=== PATIENT | male | born 1935 | race Caucasian/White ===

== ENCOUNTER 2016-02-26 15:54 | Emergency (ER) | payer OTHER ==
[~2016-02-26] VITALS: Ht 170.1 cm; Wt 95.3 kg
[~2016-02-26 15:54] MED LIST: BRIMONIDINE TART5 ML OPH; CREON DR 36,001 EACH PO; FLORICAL PO; LATANOPROST2.5 ML OP; OSTEO BI-FLEX1 EAC1 PO; PANTOPRAZOLE SO40 MG PO; TOPROL XL50 M1 PO; VITAMIN D-32000 UNI1 PO; [UNRECOGNIZED DRUG - OTHER] PO
[2016-02-26 16:30] LABS: BASO % 0.5 % (0.0-1.0); EOS # 0.1 10*3/uL (0.0-0.4); EOS % 1.8 % (1.0-4.0); HEMATOCRIT 29.1 % (42.0-52.0); HEMOGLOBIN 9.7 g/dl (14.0-18.0); LYMPH # 0.7 10*3/uL (1.3-4.4); LYMPH % 17.2 % (27.0-41.0); MEAN CELL VOLUME 104.3 fl (80.0-94.0); MEAN CORPUSCULAR HGB 34.8 pg (27.0-31.0); MEAN CORPUSCULAR HGB CONC 33.3 g/dl (33.0-37.0); MEAN PLATELET VOLUME 11.5 fl (9.6-12.3); MONO # 0.3 10*3/uL (0.1-1.0); MONO % 7.8 % (3.0-9.0); NEUT # 2.9 10*3/uL (2.3-7.9); NEUT % 72.7 % (47.0-73.0); PLATELET COUNT AUTOMATED 93 10*3/uL (130-400); RED BLOOD COUNT 2.79 10*6/uL (4.50-5.90); RED CELL DISTRI WIDTH 14.7 % (0-14.5)
[2016-02-26] MEDS ORDERED: AMLODIPINE BESYL5 MG PO (16:36)
[2016-02-26 16:42] LABS: INTERNATIONAL NORM RATIO 1.1 (2.0-3.5); PROTHROMBIN TIME 11.7 SECONDS (9.0-12.4)
[2016-02-26 16:53] LABS: ALBUMIN 3.4 gm/dl (3.1-4.5); BILIRUBIN, TOTAL 0.8 mg/dl (0.2-1.0); POTASSIUM 4.4 mmol/L (3.5-5.1); TOTAL PROTEIN 6.1 gm/dL (6.4-8.2)
== END 2016-02-26 17:25 | disposition short-term general hospital (02) ==
LOC: ED 15:54
PROVIDERS: Emergency Medicine
DX: R41.0 Disorientation, unspecified (principal); Z88.8 Allergy status to other drugs, medicaments and biological substances; I67.82 Cerebral ischemia; C25.9 Malignant neoplasm of pancreas, unspecified; C78.00 Secondary malignant neoplasm of unspecified lung

== ENCOUNTER 2016-06-30 08:46 | Inpatient (IN) | payer OTHER ==
[~2016-06-30] VITALS: Ht 182.9 cm; Wt 68.0 kg
[2016-06-30] VITALS (7 sets, daily range): BP systolic 90–128; BP diastolic 23–79
--- NOTE | ~2016-06-30 | CON ---
[place], [place] REPORT OF CON[facility]ULTATION [id number] UNIT #: [id number] ROOM: [facility] DOCTOR: LEE HARRISON,MAY BIRTHDATE: [birth year] DOS: 07/02/2016 HISTORY OF PRESENT ILLNESS: The patient is a pleasant 81-year-old male who was admitted from an area intermediate. He has had a complicated course. He has pancreatic cancer with liver metastasis. He has been on and off chemo since 2013 when he was diagnosed. He was found lying on the floor at the intermediate. He has Gram-negative rods septicemia. Urine culture that was obtained in the ER, they cath him and had 20 mL of concentrated urine that grew ESBL E. coli. He was started on Merrem this morning cefepime was stopped. He has also been receiving vancomycin and Levaquin. ID is consulted for Gram-negative fabio septicemia. The patient does have a MediPort in place. One of set of the blood cultures then have come up positive were drawn from the MediPort. He had repeat blood cultures drawn earlier today, one peripheral and one from the MediPort. He has a peritoneal catheter to drain his ascites. The peritoneal fluid was sent today for workup. He had 900 mL drained. He has 291 WBCs with 69% neutrophils, which would be consistent with a bacterial peritonitis, although he did not really does have pain of the abdomen. He did have some mild pain with the drainage procedure today. I discussed with the RN who drained his peritoneal catheter today, and she states that it was not cloudy but was dark shane. Per his , the fluid has been worked up and did not show malignant cells previously. He is currently off of chemotherapy due to his lung metastasis and multiple comorbidities. He had also been diagnosed with Jocelyn's encephalopathy recently. PAST MEDICAL HISTORY: As above as well as chronic kidney disease, depression, generalized anxiety disorder, GERD, glaucoma, hyperlipidemia, hypertension, macrocytic anemia, again pancreatic cancer metastasis to lung, prostate cancer, vitamin D deficiency, malnutrition, Whipple procedure, appendectomy, and bilateral cataract surgery, prostatectomy, and repair of ear bone. SOCIAL HISTORY: , nonsmoker, nondrinker currently in a intermediate. Reformed smoker. Quit smoking at the age of 39. No illicit drug use. FAMILY MEDICAL HISTORY: Father in world war II. Mother at the age of 68 from CVA. ALLERGIES: Include LASIX, TAPE, FLURANDRENOLIDE, TIMOLOL. CURRENT MEDICATIONS: Include IV vancomycin, Merrem, levofloxacin, vitamin D, thiamine, Xalatan eye drops, folic acid, Feosol, Colace, Imuran, aspirin, Creon, Protonix, Remeron, Alphagan eye drops, and Senokot. LABORATORY DATA: WBC is 10.1, platelets 81, BUN 72, creatinine 2.27. LFTs within normal limits. Albumin 1.2. On 06/30/2016 admitting blood cultures with Gram-negative rods. Urine culture with greater than 100,000 colonies of ESBL E. coli which is sensitive to carbapenem. Repeat blood cultures from 07/02/2016 pending. Peritoneal fluid culture obtained today is pending. REVIEW OF SYSTEMS: Given per nursing and the patient's with patient assisting although he is a very poor historian. He is alert, responsive. [place], [place] REPORT OF CONSULTATION NAME: RAMON PICHARDO UNIT #: [id number] ROOM: [facility] DOCTOR: LEE HARRISON,MAY BIRTHDATE: [birth year] Denies any nausea or vomiting. No diarrhea, no rash or itch. No cough or shortness of breath. He was hypotensive on admission that has resolved. He has been afebrile during his entire hospitalization. Denies abdominal pain except that he ended up having his peritoneum drained earlier today. No rash or itch. He has resolving sacral decubitus. He has poor appetite with peripheral edema. He denies any dysuria or hematuria. Further review of systems is unremarkable. PHYSICAL EXAMINATION: VITAL SIGNS: Show temperature 97.8, pulse 102, respirations 17, BP 128/82. GENERAL: An 81-year-old male in no acute distress, nontoxic in appearance. THROAT: Normocephalic, no thrush. NECK: Supple. LUNGS: Clear to auscultation bilaterally, respirations even and unlabored. HEART: Regular rhythm. No murmur appreciated. ABDOMEN: Soft. Mild distention with ascites. Nontender. Peritoneal catheter dressed. EXTREMITIES: +1 to 2 edema of all 4 extremities. No cellulitis. He has ecchymosis of left distal foot. SKIN: Warm, dry, pale. Sacrum with area of darkened skin where it appears he has almost entirely heel decubitus. Few small open superficial areas. No odor or cellulitis. On right chest he has a MediPort, which is accessed. RADIOLOGY: Chest x-ray with no active disease. Renal ultrasound has no acute changes. ASSESSMENT: Gram-negative fabio septicemia, likely infected peritoneal catheter which may have ceded the MediPort at this point given that one of the sets growing positive from the MediPort. Repeat cultures were obtained earlier today from the MediPort and peripherally. If these continued to grow bacteria, he is going to have the MediPort removed as well as the peritoneal port removed. We will stop the vancomycin and Levaquin. Follow up on his cultures. Continue the Merrem. Case discussed with Dr. Ann-Marie Carlin. YUNIEL HOWARD CNP ANN-MARIE CARLIN MD CM:CONSTR:REPORT OF CONSULTATION 1743 07/03/16 0725 interface
--- NOTE | ~2016-06-30 | PR ---
[place], [place] PROGRESS NOTE NAME: RAMON PICHARDO UNIT #: [id number] ROOM: 524 DOCTOR: RAEGAN PAREDES,ANN-MARIE Davis BIRTHDATE: [birth year] DOS: 07/03/2016 ADDENDUM I agree with the above plans as described. We will make adjustments accordingly as results evolve. ANN-MARIE CARLIN MD CM:PNTRANS [id number] ANN-MARIE CARLIN MD 07/05/16 1534 interface
--- NOTE | ~2016-06-30 | CON ---
[place], [place] REPORT OF CONSULTATION NAME: RAMON PICHARDO [facility] #: [id number] UNIT #: [id number] ROOM: [facility] DOCTOR: JESSIE LANDON MD BIRTHDATE: [birth year] DOS: 07/03/2016 SUBJECTIVE: The patient was seen and examined. He is awake and alert. His is at bedside. He remains critically ill. He was asking me when he can go home. He denied shortness of breath to me. His appetite has been poor, but has picked up a little bit. PHYSICAL EXAMINATION: VITAL SIGNS: Showed temperature of 97.4, pulse 101, respiratory rate 18, blood pressure 138/94. HEENT: Shows no JVD. Mucous membranes were dry. LUNGS: Diminished breath sounds. No wheeze. HEART: Normal S1, S2. No rub, thrill or gallop. ABDOMEN: Soft, nontender. There is no organomegaly. EXTREMITIES: Had 1+ edema. SKIN: Showed no rash. LABORATORY DATA: Hemoglobin 8.2, white count of 9.4, platelets of 59. Sodium 145, potassium 3.7, CO2 of 20, BUN 68, creatinine 2.19, calcium 7.0, phosphorus 3.6, magnesium 1.5, albumin 1.2. IMPRESSION: 1. Acute on chronic kidney disease. The patient's renal function has improved and is now stable. We would stop IV fluids. 2. Anemia. Stable H and H. Transfuse as needed. 3. Thrombocytopenia. Continue to follow platelet trends. 4. Sepsis. The patient is on antibiotics. 5. Metastatic pancreatic cancer. Per report, he has a poor prognosis. Continue pain management. 6. Hypoalbuminemia with malnutrition. Encourage oral intake. I do not see any need for IV albumin at this time. 7. The patient is acceptable for discharge from a renal standpoint. He can follow up with his primary associate consulting engineer. He did indicate to me that he wants to go home tomorrow, but I had stated that he would need clearance from all his doctors and I do not know the details. JESSIE LANDON MD CM:CONSTR:REPORT OF CONSULTATION 1736 07/04/16 0438 interface
--- NOTE | ~2016-06-30 | PR ---
[place], [place] PROGRESS NOTE NAME[id number] UNIT #: [id number] ROOM: [facility] DOCTOR: JESSIE LANDON MD BIRTHDATE: [birth year] DOS: 07/04/2016 SUBJECTIVE: The patient was seen and examined. He is awake and alert. Denies shortness of breath, nausea, vomiting or diarrhea. He wants to go home today. He states he feels fine. PHYSICAL EXAMINATION: VITAL SIGNS: Showed temperature 97.8, pulse 86, respirations 18, blood pressure 127/85. HEENT: Shows no JVD. LUNGS: Diminished breath sounds. No wheeze. HEART: Normal S1, S2. No rub, thrill or gallop. ABDOMEN: Soft, nontender. There is no organomegaly. EXTREMITIES: Showed 1+ edema. SKIN: Showed no rash. LABORATORY DATA: Hemoglobin 8.7, white count of 9.9, platelet count 61. Sodium 147, potassium 3.8, CO2 of 21, BUN 61, creatinine of 1.9, glucose 109, calcium 7.2, phosphorus 3.2, magnesium of 1.4 and albumin of 1.2. ASSESSMENT AND PLAN: 1. Acute on chronic kidney disease with a baseline creatinine in the middle ones range. The patient's creatinine is improving. Continue ongoing supportive care. 2. Mild hypernatremia. Encourage oral fluids. 3. Hypomagnesemia. The patient's magnesium was replaced. 4. Sepsis. Antibiotics per the Infectious Disease Service. 5. Metastatic pancreatic cancer. Continue ongoing supportive care. The patient is acceptable for discharge from renal standpoint. JESSIE LANDON MD CM:PNTRANS 1551 [id number] JESSIE LANDON MD 07/05/165 interface
--- NOTE | ~2016-06-30 | CON ---
[place], [place] REPORT OF CONSULTATION NAME: RAMON PICHARDO UNIT #: [id number] ROOM: 524 DOCTOR: RAEGAN PAREDES,ANN-MARIE Davis BIRTHDATE: [birth year] DOS: 07/02/2016 ADDENDUM I agree with the above plans as described after reviewing the chart, discussing case. We will follow the patient up clinically and adjust accordingly. ANN-MARIE CARLIN MD CM:CONSTR:REPORT OF CONSULTATION 1209 07/05/16 1519 interface
--- NOTE | ~2016-06-30 | PR ---
[place], [place] PROGRESS NOTE NAME: RAMON PICHARDO [facility] #: [id number] UNIT #: [id number] ROOM: [facility] DOCTOR: NANCY GOFF MD BIRTHDATE: [birth year] DOS: 07/02/2016 CARDIOLOGY PROGRESS NOTE SUBJECTIVE: The patient was seen at his bedside in the intensive care unit today with his in attendance. He is an 81-year-old man who has no previous history of heart disease, but does have pancreatic cancer with lung metastasis. He was hospitalized on this occasion because of weakness and was found to be septic. His urine is growing out ESBL Escherichia coli and a blood culture is also positive for gram-negative rods. He is therefore in contact isolation. He was noted to have no elevation in troponin with a peak troponin of 0.690 and a followup troponin of 0.360. Because of this, we were asked to see him. His echocardiogram was a technically difficult and somewhat limited study, but showed normal overall left ventricular function. Specific regional wall motion analysis was difficult; however, the anterior septum may be hypokinetic, but the other gant do thicken normally. Today, the patient is feeling better. He would still like to go home as soon as possible. PHYSICAL EXAMINATION: VITAL SIGNS: His pulse is 100 and regular, blood pressure is 128/82. He is afebrile. He weighs 68.0 kilograms with a body mass index of 20.3. NECK: Supple. He has no jugular distention. Carotids are full. LUNGS: Respirations have bibasilar crackles. HEART: Has a regular rhythm with an S4 gallop, but no significant murmurs. ABDOMEN: Soft. EXTREMITIES: Wrapped with mild edema bilaterally. IMPRESSION: 1. Elevated troponin. This is most likely due to demand ischemia from his underlying infection. 2. Healthcare-associated pneumonia. 3. Severe sepsis. 4. Urinary tract infection with extended-spectrum beta-lactamase Escherichia coli. 5. Positive blood cultures for gram-negative rods. 6. Metastatic pancreatic cancer. PLAN: The patient's LV function is generally normal. Unfortunately, his other medical problems do limit his prognosis greatly. For now, I would continue supportive care. We have no plans for advanced cardiac diagnostics or therapeutics. We will be available to see him as needed and I thank the hospitalist physicians for asking our advice regarding his care. [place], [place] PROGRESS NOTE NAME: RAMON PICHARDO UNIT #: [id number] ROOM: [facility] DOCTOR: SHELL PAREDES,NANCY BIRTHDATE: [birth year] NANCY GOFF MD CM:PNTRANS [id number] NANCY GOFF MD 07/03/16 0551 interface
--- NOTE | ~2016-06-30 | PR ---
[place], [place] PROGRESS NOTE NAME: RAMON PICHARDO [facility] #: [id number] UNIT #: [id number] ROOM: [facility] DOCTOR: LEE HARRISON,MAY BIRTHDATE: [birth year] DOS: HISTORY: He is being followed for gram-negative fabio septicemia, blood cultures have now grown Proteus. Blood cultures drawn include from the MediPort that he has in place. He had a urine culture with an ESBL E. coli. He is currently on Merrem, which he is tolerating without issue. He has metastatic pancreatic cancer. He is off all chemo as per his oncologist. He also has a peritoneal drain in place that is used to drain his ascites. He did have 291 wbc's with 69% neutrophils from the peritoneal fluid, though he has had minimal abdominal discomfort. The fluid culture from the peritoneal fluid is pending, that was only obtained yesterday morning after antibiotics had already been initiated. He is alert, fairly oriented. Denies nausea or vomiting. He has frequent soft stools. No pain. No cough or shortness of breath. No rash or itch. He has been afebrile. VITAL SIGNS: Show a temperature 98.0, pulse 100, respirations 16, BP 116/82. CURRENT MEDICATIONS: Include Merrem, vitamin D, thiamine, folic acid, Feosol, Colace, Imuran, aspirin, Creon, Protonix, Remeron, Alphagan. LABORATORY DATA: WBCs 9.4, platelets 59, BUN 68, creatinine 2.19. LFTs within normal limits. PHYSICAL EXAMINATION: GENERAL: An 81-year-old male, in no acute distress. HEAD, EYES, EARS, NOSE AND THROAT: Normocephalic, no thrush. LUNGS: Clear to auscultation bilaterally. Respirations even and unlabored. HEART: Regular rhythm. No murmur appreciated. ABDOMEN: Soft, less distended, positive bowel sounds, nontender. Peritoneal site, no active discharge or erythema. Right chest MediPort is accessed. EXTREMITIES: A +1 to 2 edema of all 4 extremities. No cellulitis. H does have a sacral decubitus, which I examined yesterday, which is noninfected. SKIN: Otherwise, warm, dry, and free of rashes. ASSESSMENT: Proteus septicemia with likely source being possible peritonitis with the elevated wbc's from peritoneal fluid and a peritoneal drain in place. If the peritoneal fluid cultures are positive, then he needs to have the drain removed. We will continue the Merrem. Repeat blood cultures were done yesterday from the MediPort and if those are positive, he will certainly need the MediPort removed as well. I did discuss this with the patient and his . Case was discussed with Dr. Ann-Marie Carlin. YUNIEL HOWARD CNP [place], [place] PROGRESS NOTE NAME: RAMON PICHARDO [place] UNIT #: [id number] ROOM: [facility] DOCTOR: LEE HARRISON BIRTHDATE: [birth year] ANN-MARIE CARLIN MD CM:PNVIRAJ [id number] [id number] MAY LEE HARRISON 07/03/16 1700 interface
[~2016-06-30 08:46] MED LIST changes: +AMLODIPINE BESYL5 MG PO
[2016-06-30 09:15] LABS: HEMATOCRIT 27.9 % (42.0-52.0); HEMOGLOBIN 9.1 g/dl (14.0-18.0); MEAN CELL VOLUME 102.6 fl (80.0-94.0); MEAN CORPUSCULAR HGB 33.5 pg (27.0-31.0); MEAN CORPUSCULAR HGB CONC 32.6 g/dl (33.0-37.0); MEAN PLATELET VOLUME 11.4 fl (9.6-12.3); PLATELET COUNT AUTOMATED 102 10*3/uL (130-400); RED BLOOD COUNT 2.72 10*6/uL (4.50-5.90); WHITE BLOOD COUNT 25.1 10*3/uL (4.8-10.8)
[2016-06-30 09:24] LABS: INTERNATIONAL NORM RATIO 1.3 (2.0-3.5); PROTHROMBIN TIME 13.8 SECONDS (9.0-12.4)
[2016-06-30] MEDS ORDERED: AZATHIOPRINE50 MG PO (09:30)
[2016-06-30] MEDS ORDERED: ASPIRIN81 M1 PO (09:30)
[2016-06-30] MEDS ORDERED: COLACE100 MG PO (09:30)
[2016-06-30 09:31] LABS: ALBUMIN 1.2 gm/dl (3.1-4.5); BILIRUBIN, TOTAL 0.5 mg/dl (0.2-1.0); CKMB 3.4 ng/ml (0.5-3.6); LYMPHOCYTE # 0.5 10*3/uL (1.3-4.4); MAGNESIUM 1.7 mg/dL (1.5-2.1); MONOCYTE # 0.5 10*3/uL (0.1-1.0); NEUTROPHIL # 24.1 10*3/uL (2.3-7.9); NEUTROPHILS 96 % (47-73); POTASSIUM 3.8 mmol/L (3.5-5.1); TOTAL CELLS COUNTED 100 #CELLS
[2016-06-30] MEDS ORDERED: FLORICAL PO (09:31)
[2016-06-30 09:32] LABS: PLATELET SUFFICIENCY LOW (NORMAL); POLYCHROMASIA SLIGHT; TOXIC GRANULATION SLIGHT
[2016-06-30] MEDS ORDERED: LASIX20 MG PO (09:33)
[2016-06-30 09:34] LABS: TROPONIN I 0.45 ng/ml (<0.045)
[2016-06-30] MEDS ORDERED: MELATONIN3 MG PO (09:35)
[2016-06-30] MEDS ORDERED: GLUCOSAMINE & C1 TAB PO (09:35)
[2016-06-30] MEDS ORDERED: PREDNISONE10 MG PO (09:36)
[2016-06-30] MEDS ORDERED: REMERON15 M2 PO (09:36)
[2016-06-30] MEDS ORDERED: NATURE'S BLEND100 M2 PO (09:37)
[2016-06-30] MEDS ORDERED: TRAZODONE50 MG PO (09:37)
[2016-06-30] MEDS ORDERED: SENNA LAX8.6 M1 PO (09:37)
[2016-06-30] MEDS ORDERED: VITAMIN D5000 I3 PO (09:38)
[2016-06-30] MEDS ORDERED: XALATAN 0.005%2.5 ML OU (09:39)
[2016-06-30] MEDS ORDERED: ALPHAGAN-P 0.2%5 ML OPH ×2 (09:39→09:48)
[2016-06-30] MEDS ORDERED: FERROUS SULFAT325 MG PO (09:40)
[2016-06-30] MEDS ORDERED: NEPHROCAPS1 SGL PO (09:40)
[2016-06-30] MEDS ORDERED: [UNRECOGNIZED DRUG - OTHER] PO (09:41)
[2016-06-30] MEDS ORDERED: CREON DR 36,001 EACH PO ×2 (09:42→23:48)
[2016-06-30] MEDS ORDERED: PANCRELIPASE PO (09:44)
[2016-06-30] MEDS ORDERED: NORCO 5-325 TA1 EACH PO (09:45)
[2016-06-30 12:04] LABS: BILIRUBIN NEGATIVE (NEGATIVE); BLOOD 1+ (NEGATIVE); CLARITY CLOUDY (CLEAR); COLOR YELLOW (YELLOW); GLUCOSE NEGATIVE (NEGATIVE); KETONE NEGATIVE (NEGATIVE); LEUKO ESTERASE 2+ (NEGATIVE); NITRITE NEGATIVE (NEGATIVE); PROTEIN 1+ (NEGATIVE); SPECIFIC GRAVITY 1.015 (1.005-1.030); UROBILINOGEN 0.2 E.U./dl (0.2-1.0)
[2016-06-30 12:19] LABS: BACTERIA 4+; URINE REFLEX COMMENT YES (NO); WBC TNTC wbc/hpf (0-5)
[2016-06-30] MEDS ORDERED: NYSTATIN100000 U/G T (13:24)
[2016-06-30] MEDS ORDERED: PROTONIX40 MG PO (13:25)
[2016-07-01] VITALS: BP 138/72
[2016-07-01 04:00] VITALS: BP 152/97
[2016-07-01 06:08] LABS: HEMATOCRIT 27.9 % (42.0-52.0); HEMOGLOBIN 9.1 g/dl (14.0-18.0); MEAN CELL VOLUME 100.7 fl (80.0-94.0); MEAN CORPUSCULAR HGB 32.9 pg (27.0-31.0); MEAN CORPUSCULAR HGB CONC 32.6 g/dl (33.0-37.0); PLATELET COUNT AUTOMATED 111 10*3/uL (130-400); RED BLOOD COUNT 2.77 10*6/uL (4.50-5.90); WHITE BLOOD COUNT 19.2 10*3/uL (4.8-10.8)
[2016-07-01 06:31] LABS: BILIRUBIN, TOTAL 0.4 mg/dl (0.2-1.0); POTASSIUM 3.6 mmol/L (3.5-5.1)
[2016-07-01 06:37] LABS: ALBUMIN 1.2 gm/dl (3.1-4.5); FREE T4 1.01 ng/dl (0.76-1.46); MAGNESIUM 1.7 mg/dL (1.5-2.1); PHOSPHOROUS 4.1 mg/dL (2.5-4.9); THYROID STIM HORMONE (HS) 1.28 uIU/ml (0.358-4.75); TOTAL PROTEIN 4.1 gm/dL (6.4-8.2)
[2016-07-01 06:51] LABS: INTERNATIONAL NORM RATIO 1.2 (2.0-3.5); NEUTROPHIL # 19.2 10*3/uL (2.3-7.9); NEUTROPHILS 100 % (47-73); PLATELET SUFFICIENCY LOW (NORMAL); POLYCHROMASIA SLIGHT; PROTHROMBIN TIME 12.9 SECONDS (9.0-12.4); SCHISTOCYTES FEW; TOTAL CELLS COUNTED 100 #CELLS
[2016-07-01 07:30] LABS: VITAMIN D, 25-HYDROXY 27.4 ng/mL (30-100)
[2016-07-01 07:31] LABS: FOLIC ACID 4.04 ng/mL (>5.38)
[2016-07-01 07:42] LABS: HEMOGLOBIN A1c 7.2 % (4.8-5.6)
[2016-07-01 08:00] VITALS: BP 147/78
[2016-07-01 11:59] VITALS: BP 143/83
[2016-07-01 16:00] VITALS: BP 140/80
[2016-07-01 19:52] VITALS: BP 130/84
[2016-07-02] VITALS: BP 140/76
[2016-07-02 04:00] VITALS: BP 136/75
[2016-07-02 06:12] LABS: BASO % 0.1 % (0.0-1.0); EOS % 0.3 % (1.0-4.0); HEMATOCRIT 25.9 % (42.0-52.0); HEMOGLOBIN 8.4 g/dl (14.0-18.0); IG # 0.2 10*3/uL (0.0-0.1); LYMPH # 0.4 10*3/uL (1.3-4.4); LYMPH % 4.3 % (27.0-41.0); MEAN CELL VOLUME 102.4 fl (80.0-94.0); MEAN CORPUSCULAR HGB 33.2 pg (27.0-31.0); MEAN CORPUSCULAR HGB CONC 32.4 g/dl (33.0-37.0); MEAN PLATELET VOLUME 12.5 fl (9.6-12.3); MONO # 0.5 10*3/uL (0.1-1.0); MONO % 4.8 % (3.0-9.0); NEUT % 88.9 % (47.0-73.0); PLATELET COUNT AUTOMATED 81 10*3/uL (130-400); RED BLOOD COUNT 2.53 10*6/uL (4.50-5.90); RED CELL DISTRI WIDTH 16.1 % (0-14.5); WHITE BLOOD COUNT 10.1 10*3/uL (4.8-10.8)
[2016-07-02 06:29] LABS: ALBUMIN 1.2 gm/dl (3.1-4.5); BILIRUBIN, TOTAL 0.4 mg/dl (0.2-1.0); MAGNESIUM 1.6 mg/dL (1.5-2.1); PHOSPHOROUS 3.9 mg/dL (2.5-4.9); POTASSIUM 3.6 mmol/L (3.5-5.1); TOTAL PROTEIN 3.9 gm/dL (6.4-8.2)
[2016-07-02 08:00] VITALS: BP 134/76
[2016-07-02 11:42] LABS: BODY FLUID RBC 1000 /uL; BODY FLUID WBC 291 /uL
[2016-07-02 11:49] LABS: BODY FLUID TYPE PERITONEAL
[2016-07-02 12:00] VITALS: BP 130/70
[2016-07-02 12:03] LABS: BODY FLUID LDH 126 IU/L; BODY FLUID PROTEIN 0.8 g/dl; BODY FLUID TRIGLYCERIDE 29 mg/dl
[2016-07-02 12:43] LABS: BF LYMPHOCYTES 24 %; BF MONOCYTES 7 %; BF NEUTROPHILS 69 %
[2016-07-02 15:51] VITALS: BP 128/82
[2016-07-02 19:54] VITALS: BP 131/77
[2016-07-03] VITALS: BP 127/81
[2016-07-03 04:00] VITALS: BP 131/73
[2016-07-03 05:27] LABS: ALBUMIN 1.1 gm/dl (3.1-4.5); BILIRUBIN, TOTAL 0.4 mg/dl (0.2-1.0); MAGNESIUM 1.5 mg/dL (1.5-2.1); PHOSPHOROUS 3.6 mg/dL (2.5-4.9); POTASSIUM 3.7 mmol/L (3.5-5.1); TOTAL PROTEIN 3.7 gm/dL (6.4-8.2)
[2016-07-03 06:07] LABS: BASO % 0.1 % (0.0-1.0); EOS # 0.1 10*3/uL (0.0-0.4); EOS % 0.5 % (1.0-4.0); HEMATOCRIT 25.3 % (42.0-52.0); HEMOGLOBIN 8.2 g/dl (14.0-18.0); IG # 0.2 10*3/uL (0.0-0.1); LYMPH # 0.5 10*3/uL (1.3-4.4); LYMPH % 5.2 % (27.0-41.0); MEAN CELL VOLUME 102.4 fl (80.0-94.0); MEAN CORPUSCULAR HGB 33.2 pg (27.0-31.0); MEAN CORPUSCULAR HGB CONC 32.4 g/dl (33.0-37.0); MEAN PLATELET VOLUME 11.1 fl (9.6-12.3); MONO # 0.5 10*3/uL (0.1-1.0); MONO % 5.7 % (3.0-9.0); NEUT # 8.1 10*3/uL (2.3-7.9); NEUT % 86.7 % (47.0-73.0); PLATELET COUNT AUTOMATED 59 10*3/uL (130-400); RED BLOOD COUNT 2.47 10*6/uL (4.50-5.90); RED CELL DISTRI WIDTH 16.1 % (0-14.5); WHITE BLOOD COUNT 9.4 10*3/uL (4.8-10.8)
[2016-07-03 08:00] VITALS: BP 138/99
[2016-07-03 12:00] VITALS: BP 116/82
[2016-07-03 16:28] VITALS: BP 138/94
[2016-07-03 20:00] VITALS: BP 146/93
[2016-07-04] VITALS: BP 158/90
[2016-07-04 04:00] VITALS: BP 111/75
[2016-07-04 05:49] LABS: ALBUMIN 1.2 gm/dl (3.1-4.5); BILIRUBIN, TOTAL 0.4 mg/dl (0.2-1.0); MAGNESIUM 1.4 mg/dL (1.5-2.1); PHOSPHOROUS 3.2 mg/dL (2.5-4.9); POTASSIUM 3.8 mmol/L (3.5-5.1); TOTAL PROTEIN 3.9 gm/dL (6.4-8.2)
[2016-07-04 05:56] LABS: EOS # 0.1 10*3/uL (0.0-0.4); EOS % 0.5 % (1.0-4.0); HEMATOCRIT 26.9 % (42.0-52.0); HEMOGLOBIN 8.7 g/dl (14.0-18.0); IG # 0.2 10*3/uL (0.0-0.1); LYMPH # 0.5 10*3/uL (1.3-4.4); MEAN CELL VOLUME 101.9 fl (80.0-94.0); MEAN CORPUSCULAR HGB CONC 32.3 g/dl (33.0-37.0); MEAN PLATELET VOLUME 12.1 fl (9.6-12.3); MONO # 0.5 10*3/uL (0.1-1.0); MONO % 5.4 % (3.0-9.0); NEUT # 8.6 10*3/uL (2.3-7.9); NEUT % 86.8 % (47.0-73.0); PLATELET COUNT AUTOMATED 61 10*3/uL (130-400); RED BLOOD COUNT 2.64 10*6/uL (4.50-5.90); RED CELL DISTRI WIDTH 15.9 % (0-14.5); WHITE BLOOD COUNT 9.9 10*3/uL (4.8-10.8)
[2016-07-04 08:00] VITALS: BP 166/103
[2016-07-04 12:00] VITALS: BP 127/85
[2016-07-04 16:00] VITALS: BP 142/91
[2016-07-04 20:00] VITALS: BP 122/75
[2016-07-05] VITALS: BP 122/72
[2016-07-05 04:00] VITALS: BP 132/78
[2016-07-05 06:11] LABS: HEMATOCRIT 24.6 % (42.0-52.0); HEMOGLOBIN 8.2 g/dl (14.0-18.0); MEAN CELL VOLUME 99.6 fl (80.0-94.0); MEAN CORPUSCULAR HGB 33.2 pg (27.0-31.0); MEAN CORPUSCULAR HGB CONC 33.3 g/dl (33.0-37.0); PLATELET COUNT AUTOMATED 64 10*3/uL (130-400); RED BLOOD COUNT 2.47 10*6/uL (4.50-5.90); RED CELL DISTRI WIDTH 16.1 % (0-14.5); WHITE BLOOD COUNT 10.5 10*3/uL (4.8-10.8)
[2016-07-05 06:15] LABS: ALBUMIN 1.2 gm/dl (3.1-4.5); BILIRUBIN, TOTAL 0.3 mg/dl (0.2-1.0); TOTAL PROTEIN 3.6 gm/dL (6.4-8.2)
[2016-07-05 06:24] LABS: PHOSPHOROUS 3.2 mg/dL (2.5-4.9)
[2016-07-05 06:37] LABS: POTASSIUM 4.8 mmol/L (3.5-5.1)
[2016-07-05 06:42] LABS: EOSINOPHIL # 0.1 10*3/uL (0-0.4); EOSINOPHILS 1 % (1-4); LYMPHOCYTE # 0.3 10*3/uL (1.3-4.4); MONOCYTE # 0.5 10*3/uL (0.1-1.0); NEUTROPHIL # 9.6 10*3/uL (2.3-7.9); NEUTROPHILS 91 % (47-73); OVALOCYTES FEW; TOTAL CELLS COUNTED 100 #CELLS
[2016-07-05 06:43] LABS: PLATELET SUFFICIENCY LOW (NORMAL); POLYCHROMASIA SLIGHT
[2016-07-05 08:00] VITALS: BP 144/83
[2016-07-05 12:00] VITALS: BP 106/50
[2016-07-05] MEDS ORDERED: INVANZ1 GM/50 ML IV (14:59)
[2016-07-05 16:00] VITALS: BP 126/75
[2016-07-05 20:00] VITALS: BP 124/75
[2016-07-06] VITALS: BP 125/71
[2016-07-06 06:51] LABS: HEMATOCRIT 26.4 % (42.0-52.0); HEMOGLOBIN 8.9 g/dl (14.0-18.0); MEAN CELL VOLUME 101.9 fl (80.0-94.0); MEAN CORPUSCULAR HGB 34.4 pg (27.0-31.0); MEAN CORPUSCULAR HGB CONC 33.7 g/dl (33.0-37.0); NUCLEATED RED BLOOD CELL 0.2 % (0.0-0.0); RED BLOOD COUNT 2.59 10*6/uL (4.50-5.90); RED CELL DISTRI WIDTH 15.9 % (0-14.5); WHITE BLOOD COUNT 10.4 10*3/uL (4.8-10.8)
[2016-07-06 06:55] LABS: PLATELET COUNT AUTOMATED 49 10*3/uL (130-400)
[2016-07-06 07:12] LABS: ALBUMIN 1.2 gm/dl (3.1-4.5); BILIRUBIN, TOTAL 0.3 mg/dl (0.2-1.0); PHOSPHOROUS 3.2 mg/dL (2.5-4.9); POTASSIUM 5.7 mmol/L (3.5-5.1); TOTAL PROTEIN 3.7 gm/dL (6.4-8.2)
[2016-07-06 07:25] LABS: LYMPHOCYTE # 0.2 10*3/uL (1.3-4.4); METAMYELOCYTES 1 % (0-0); MONOCYTE # 0.4 10*3/uL (0.1-1.0); NEUTROPHIL # 9.7 10*3/uL (2.3-7.9); NEUTROPHILS 93 % (47-73); TOTAL CELLS COUNTED 100 #CELLS
[2016-07-06 07:26] LABS: OVALOCYTES FEW; PLATELET SUFFICIENCY LOW (NORMAL)
[2016-07-06 08:00] VITALS: BP 108/62
[2016-07-06 16:00] VITALS: BP 128/81
[2016-07-07] VITALS: BP 126/71
[2016-07-07 07:21] LABS: HEMATOCRIT 23.9 % (42.0-52.0); HEMOGLOBIN 7.8 g/dl (14.0-18.0); MEAN CELL VOLUME 101.3 fl (80.0-94.0); MEAN CORPUSCULAR HGB 33.1 pg (27.0-31.0); MEAN CORPUSCULAR HGB CONC 32.6 g/dl (33.0-37.0); MEAN PLATELET VOLUME 13.6 fl (9.6-12.3); RED BLOOD COUNT 2.36 10*6/uL (4.50-5.90); WHITE BLOOD COUNT 7.6 10*3/uL (4.8-10.8)
[2016-07-07 07:23] LABS: PLATELET COUNT AUTOMATED 72 10*3/uL (130-400)
[2016-07-07 07:47] LABS: EOSINOPHIL # 0.2 10*3/uL (0-0.4); EOSINOPHILS 2 % (1-4); LYMPHOCYTE # 0.5 10*3/uL (1.3-4.4); METAMYELOCYTES 1 % (0-0); MONOCYTE # 0.5 10*3/uL (0.1-1.0); NEUTROPHIL # 6.4 10*3/uL (2.3-7.9); NEUTROPHILS 84 % (47-73); PLATELET SUFFICIENCY LOW (NORMAL); POLYCHROMASIA SLIGHT; TOTAL CELLS COUNTED 100 #CELLS
[2016-07-07 07:50] LABS: ALBUMIN 1.2 gm/dl (3.1-4.5); MAGNESIUM 2.3 mg/dL (1.5-2.1); POTASSIUM 5.6 mmol/L (3.5-5.1)
[2016-07-07 07:52] LABS: BILIRUBIN, TOTAL 0.3 mg/dl (0.2-1.0); PHOSPHOROUS 3.5 mg/dL (2.5-4.9)
[2016-07-07 08:00] VITALS: BP 130/80
[2016-07-07] MEDS ORDERED: INVANZ1 GM/50 ML IV (15:20)
[2016-07-07 16:00] VITALS: BP 142/69
[2016-07-07] MEDS ORDERED: REMERON15 M2 PO (16:38)
== END 2016-07-07 17:39 | disposition home health service (06) | DRG 871 ==
LOC: ED 08:46 → ICCU 12:12 → EDHOLD 12:12 → ICCU 12:31 → 5E 07-05 09:46
PROVIDERS: Emergency Medicine; Internal Medicine Hospice and Palliative Medicine; Internal Medicine Nephrology
PROC: 0W9G3ZX Drainage of Peritoneal Cavity, Percutaneous Approach, Diagnostic (ICD-10-PCS; principal; 2016-06-30)
DX: A41.50 Gram-negative sepsis, unspecified (principal); N17.0 Acute kidney failure with tubular necrosis; E43 Unspecified severe protein-calorie malnutrition; J18.9 Pneumonia, unspecified organism; E87.0 Hyperosmolality and hypernatremia; C25.7 Malignant neoplasm of other parts of pancreas; E83.42 Hypomagnesemia; C78.00 Secondary malignant neoplasm of unspecified lung; N39.0 Urinary tract infection, site not specified; C78.7 Secondary malignant neoplasm of liver and intrahepatic bile duct; I50.32 Chronic diastolic (congestive) heart failure; I13.0 Hypertensive heart and chronic kidney disease with heart failure and stage 1 through stage 4 chronic kidney disease, or unspecified chronic kidney disease; R65.20 Severe sepsis without septic shock; E86.0 Dehydration; D69.6 Thrombocytopenia, unspecified; E87.8 Other disorders of electrolyte and fluid balance, not elsewhere classified; R73.9 Hyperglycemia, unspecified; D53.1 Other megaloblastic anemias, not elsewhere classified; E53.8 Deficiency of other specified B group vitamins; N18.3 Chronic kidney disease, stage 3 (moderate); K21.9 Gastro-esophageal reflux disease without esophagitis; E06.3 Autoimmune thyroiditis; H40.9 Unspecified glaucoma; F32.9 Major depressive disorder, single episode, unspecified; D53.9 Nutritional anemia, unspecified; F41.1 Generalized anxiety disorder; Z98.42 Cataract extraction status, left eye; Z98.41 Cataract extraction status, right eye; Z90.49 Acquired absence of other specified parts of digestive tract; Z87.891 Personal history of nicotine dependence; Z88.8 Allergy status to other drugs, medicaments and biological substances; Z91.040 Latex allergy status; Z79.82 Long term (current) use of aspirin; Z79.1 Long term (current) use of non-steroidal anti-inflammatories (NSAID); Z79.899 Other long term (current) drug therapy; Z68.22 Body mass index [BMI] 22.0-22.9, adult

== ENCOUNTER → 2016-12-15 | Outpatient (CLI) | payer OTHER ==
[~2016-12-15] MED LIST changes: +ALPHAGAN-P 0.2%5 ML OPH; +ASPIRIN81 M1 PO; +AZATHIOPRINE50 MG PO; +COLACE100 MG PO; +FERROUS SULFAT325 MG PO; +GLUCOSAMINE & C1 TAB PO; +INVANZ1 GM/50 ML IV; +LASIX20 MG PO; +MELATONIN3 MG PO; +NATURE'S BLEND100 M2 PO; +NEPHROCAPS1 SGL PO; +NORCO 5-325 TA1 EACH PO; +NYSTATIN100000 U/G T; +PANCRELIPASE PO; +PREDNISONE10 MG PO; +PROTONIX40 MG PO; +REMERON15 M2 PO; +SENNA LAX8.6 M1 PO; +TRAZODONE50 MG PO; +VITAMIN D5000 I3 PO; +XALATAN 0.005%2.5 ML OU; +[UNRECOGNIZED DRUG - OTHER] PO
== END | disposition home or self-care (01) ==
LOC: MRI 14:50
DX: S83.241A Other tear of medial meniscus, current injury, right knee, initial encounter (principal); M17.11 Unilateral primary osteoarthritis, right knee; M25.461 Effusion, right knee; X58.XXXA Exposure to other specified factors, initial encounter; Y93.89 Activity, other specified; Y92.89 Other specified places as the place of occurrence of the external cause; Y99.8 Other external cause status

== ENCOUNTER 2017-06-14 12:56 | Emergency (ER) | payer OTHER ==
[~2017-06-14] VITALS: Ht 177.8 cm; Wt 72.6 kg
[2017-06-14] MEDS ORDERED: AMLODIPINE BESY10 MG PO (13:16)
[2017-06-14] MEDS ORDERED: ACETAMINOPHEN500 M5 PO (13:16)
[2017-06-14 14:01] LABS: HEMATOCRIT 26.7 % (42.0-52.0); HEMOGLOBIN 8.5 g/dl (14.0-18.0); MEAN CELL VOLUME 106.4 fl (80.0-94.0); MEAN CORPUSCULAR HGB 33.9 pg (27.0-31.0); MEAN CORPUSCULAR HGB CONC 31.8 g/dl (33.0-37.0); MEAN PLATELET VOLUME 11.2 fl (9.6-12.3); PLATELET COUNT AUTOMATED 149 10*3/uL (130-400); RED BLOOD COUNT 2.51 10*6/uL (4.50-5.90); RED CELL DISTRI WIDTH 15.3 % (0-14.5); WHITE BLOOD COUNT 6.3 10*3/uL (4.8-10.8)
[2017-06-14 14:13] LABS: ALBUMIN 3.4 gm/dl (3.1-4.5); CREATININE 1.65 mg/dL (0.70-1.30); POTASSIUM 4.6 mmol/L (3.5-5.1); TOTAL PROTEIN 6.4 gm/dL (6.4-8.2)
[2017-06-14 14:14] LABS: FREE T4 0.82 ng/dl (0.76-1.46)
[2017-06-14 14:21] LABS: THYROID STIM HORMONE (HS) 2.34 uIU/ml (0.358-4.75)
[2017-06-14 14:23] LABS: PLATELET SUFFICIENCY NORMAL (NORMAL); TOTAL CELLS COUNTED 100 #CELLS
[2017-06-14 15:31] LABS: BILIRUBIN NEGATIVE (NEGATIVE); BLOOD 1+ (NEGATIVE); CLARITY CLEAR (CLEAR); COLOR YELLOW (YELLOW); GLUCOSE NEGATIVE (NEGATIVE); KETONE NEGATIVE (NEGATIVE); LEUKO ESTERASE NEGATIVE (NEGATIVE); NITRITE NEGATIVE (NEGATIVE); PH 5.5 (5.0-9.0); SPECIFIC GRAVITY 1.015 (1.005-1.030); UROBILINOGEN 0.2 E.U./dl (0.2-1.0)
== END 2017-06-14 16:00 | disposition home or self-care (01) ==
LOC: ED 12:56
PROVIDERS: Nurse Practitioner
DX: D64.89 Other specified anemias (principal); E06.3 Autoimmune thyroiditis; Z90.89 Acquired absence of other organs; Z98.890 Other specified postprocedural states; Z87.891 Personal history of nicotine dependence; Z79.899 Other long term (current) drug therapy; Z91.040 Latex allergy status; Z88.8 Allergy status to other drugs, medicaments and biological substances; Z79.82 Long term (current) use of aspirin; Z85.07 Personal history of malignant neoplasm of pancreas

== ENCOUNTER 2018-04-05 12:58 | Inpatient (IN) | payer OTHER ==
[~2018-04-05] VITALS: Ht 180.3 cm; Wt 84.8 kg
[2018-04-05] VITALS (9 sets, daily range): BP systolic 132–153; BP diastolic 50–84
--- NOTE | ~2018-04-05 | CON ---
[place], [place] REPORT OF CONSULTATION NAME: RAMON PICHARDO [facility] #: [id number] UNIT #: [id number] ROOM: 421 DOCTOR: CONNOR HOBBS MD BIRTHDATE: [birth year] DOS: 04/07/2018 PULMONARY CONSULTATION REQUESTED BY: Hospitalist services. REASON FOR CONSULTATION: For assessment of abnormal CT scan of the chest assessment. HISTORY OF PRESENT ILLNESS: This is an 83-year-old white male patient. His history has been provided mostly by the patient's spouse in greater length in detail. This is an 83-year-old white male patient who has been recently diagnosed with cancer of pancreas as per of this patient in 2014. He has been assessed to receive chemotherapy initially and later underwent Whipple procedure. The patient also received the radiation therapy in 2016 and chemotherapy. He has been managed for the pancreatic cancer with a different regimens of chemotherapy with last regimen given in 2016 and after that the patient was not given any chemotherapy. He has been known with history of pulmonary nodules in the lung and has been assessed and management was provided at [facility]. He has a CT scan of the chest completed in the [facility] as well over a week ago as per spouse. She was told rather previously the patient has been noted no significant change in the pulmonary nodules or abnormalities of this nodule in the lungs. He has been admitted to the hospital under the care of the hospitalist services. The patient has been noted with progressive symptoms of weakness and fatigue that has been reported. His symptoms have been present over 3 months stated by the spouse with severe cough, chest congestion, intermittent sputum expectoration. The patient has been treated by the primary care physician 2-3 days with antibiotic, Zithromax, Levaquin and some others and also been given some steroids and bronchodilators. The symptoms had been noted variably controlled multiple [id number] medications, has been used by the patient's spouse as well for the management of the current cough. The patient has been known with a change in mental status, which is chronic for the patient and determined with early onset of dementia for the patient and other medical illness in [place], [place], assessment by other physicians. At this time, the patient has been sitting on the chair in the room with the patient. It was not noted any respiratory distress. REVIEW OF SYSTEMS: GENERAL: Somewhat limited for the patient; however, reported general weakness and fatigue. EYES: Denies any burning, redness, or tenderness. EARS, NOSE, AND THROAT: Denies sore throat, hoarseness, otalgia, postnasal drainage. CARDIOVASCULAR: Denies anginal pain, edema, pain of lower extremity. GASTROINTESTINAL: Denies symptoms of dysphagia, nausea, vomiting, diarrhea, abdominal pain, hematemesis, or melena. GENITOURINARY: Symptoms of dysuria, suprapubic pain for the patient reported. MUSCULOSKELETAL: No acute joint pain reported. SKIN: No lesions or rashes reported. [place], [place] REPORT OF CONSULTATION NAME: RAMON PICHARDO UNIT #: [id number] ROOM: 421 DOCTOR: CONNOR HOBBS MD BIRTHDATE: [birth year] CENTRAL NERVOUS SYSTEM: Confusion at time with forgetfulness and memory issues reported as per spouse. PAST MEDICAL HISTORY: The patient with known history of pancreatic cancer to my understanding of metastatic disease to the lung, which has been known with the previous CT scans and monitored as well as in the liver monitored by the medical oncologist, but not receiving any chemotherapy. 1. History of congestive heart failure, diastolic dysfunction. 2. Chronic kidney disease stage 3. 3. Depression. 4. 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 5. Essential hypertension. 6. History reported for prostate cancer. PAST SURGICAL HISTORY: 1. Noted Whipple procedure in the past. 2. Appendectomy. 3. Cataract extraction with lens implantation bilaterally. 4. Prostatectomy for the prostate cancer. 5. Bilateral ear surgery with the stapedectomy with a prosthesis insertion. SOCIAL HISTORY: The patient has been noted tobacco use as teenager about a pack of cigarettes per day that has been discontinued 40 years or more. There was no history of alcohol use, illicit drug use reported. The patient is and lives at home. FAMILY HISTORY: The patient reported as father in World War [place]. Mother at age 68 of complications of acute stroke. MEDICATIONS: From home were listed as Norvasc, aspirin, azathioprine, bisoprolol, vitamin D3, Mucinex, ferrous sulfate, Lasix, Remeron, Zyprexa, Protonix, prednisone 10 mg, thiamine and some other medications. The current medications administered for the patient on this admission were noted as use of DuoNeb, prednisone, latanoprost eye drops, lactobacillus, atenolol, Norvasc, ferrous sulfate, vitamin D, azathioprine, aspirin, Lovenox for DVT prophylaxis, Zyprexa, Remeron, Mucinex, Solu-Medrol 40 mg IV b.i.d., IV clindamycin and other medications. DRUG ALLERGIES: The patient was noted as allergies to: 1. CORDRAN. 2. TIMOPTIC EYE DROPS. PHYSICAL EXAMINATION: GENERAL: An 83-year-old elderly patient, comfortably sitting on the chair without acute distress, oxygen supplementation for the nasal cannula. Height of 5 feet 11 inches, weight of 187 pounds, BMI 26. VITAL SIGNS: Normal temperature, respiratory rate between 18-17, heart rate 61-68. The blood pressure 142/63-122/40. The pulse oxygen saturation was [place], [place] REPORT OF CONSULTATION NAME: RAMON PICHARDO UNIT #: [id number] ROOM: [facility] [place] DOCTOR: CONNOR HOBBS MD BIRTHDATE: [birth year] recorded as 94%-95% saturation on room air. HEENT: Examination shows head was atraumatic. Eyes nonicterus. NECK: Supple. CARDIOVASCULAR: S1, S2 audible. LUNGS: The patient noted with bilateral reduction in the breath sounds bilaterally. There were no wheezes or crackles. ABDOMEN: Soft, nontender. Bowel sounds present. EXTREMITIES: Without acute edema. MUSCULOSKELETAL: Without any gross deformity seen. SKIN: No lesions or rashes. CENTRAL NERVOUS SYSTEM: The patient's cranial nerves 2-12 intact. The examination was, however, limited. LABORATORY DATA: The lactic acid is 2.0, 04/05/2018 on admission. PT/PTT 04/05/2018 on admission was noted as normal. The CBC on 04/05/2018, WBC count 13.7, hemoglobin 11.1, platelet count were normal. The CMP of 04/05/2018, BUN 32, creatinine 1.58. CO2 was 20. The LFTs, which were also done were noted essentially normal AST and ALT. Troponin, which were done on the 04/05/2018 were normal. The BMP that was reviewed this morning, BUN 50, creatinine 1.88, glucose 354. CO2 was 16. The blood culture on 04/05/2018 was noted as no bacterial growth from admission. CBC this morning, WBC of 14.1, hemoglobin 10.2, hematocrit 32.3, platelet count 160,000. Review of the radiology data, pertinent to the chest. A CT scan of the chest, which was done on 11/14/2017 was reviewed, initially shows bilateral pulmonary nodule, mass lesion noted in the lower lung at that time with the largest mass lesion in the right lower lobe as a 6.9 x 3.6 cm in size. The right middle lobe nodule is 2.6 cm in size. The CT scan of the chest that was completed on 04/05/2018 was noted with increasing the size of the previous supportive pulmonary nodule with a large mass lesion. Lesion was present in the lower lungs bilaterally, greater in the right lower lobe than the left lower lobe. Associated small pleural fluid. Possibility of consolidation with air bronchogram or enlarging mass lesion in the right middle lobe cannot be completely excluded. Lingular infiltration also noted with some air bronchogram. IMPRESSION: The patient who has been noted with symptoms of chronic cough and sputum expectoration has been treated with antibiotic 2 or 3 times for this patient currently noted with current abnormal CT scan with high suspicion of progressive metastatic malignancy originating from the colon cancer, superimposed pneumonia with those cannot be completely excluded. Small pleural fluid related to the current malignant process not amenable for thoracentesis because of the small size or related to the pneumonia combination would be considered. 2. The patient is a chronic kidney disease, mild worsening of the kidney function related to intravascular volume depletion. 3. The patient with a history of chronic dementia, change in mental status as well. Multiple other medical condition, which has been known previously for the patient as well. PLAN OF THERAPY: The current ongoing abnormality for the patient and my assessment was discussed in detail with the patient's about further [place], [place] REPORT OF CONSULTATION NAME: RAMON PICHARDO UNIT #: [id number] ROOM: 421 DOCTOR: CONNOR HOBBS MD BIRTHDATE: [birth year] recommendations. She would like the patient to be transferred to [facility] for further assessment and care. Since the patient has been very well known to his medical oncologist in [facility] as well for further diagnostic assessment and management accordingly. At this time, the patient is already having the antibiotic. At this time, I would not advise any changes as there was no availability as the culture so far done. Other data assessment was not suggestive of any other different organisms, which need to be covered bedside for the aspiration. Overall prognosis is limited. Pleural fluid will be monitored. Thoracentesis at this time would not be performed because of the small size of the pleural fluid as well. Other management, plan of patient's care to be continued. I do not know the need of requiring the use of corticosteroids at this time, they could be discontinued. If necessary Solu-Medrol, the patient has been getting, immunosuppressive therapy with Imuran and prednisone, reason of that is not understood per direction of his physician from [place], [place]. Other supportive plan of management. Nursing has been informed for patient about making the arrangement, patient transferred to the [facility]. Per patient's request for further diagnostic workup, management and other plans of care. CONNOR LAZO MD CM:CONSTR:REPORT OF CONSULTATION 26 04/20/18 1235 interface
--- NOTE | ~2018-04-05 | EKG ---
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1935 Requested By: WESLEY HOSKINS DNP Order Number: [id number] Reading MD: Daivd Franklin MD Measurements Intervals [place] Rate: 61 P: -18 WA: 253 QRS: -36 QRSD: 94 T: 11 QT: 421 QTc: 424 Interpretive Statements Sinus rhythm Multiple premature complexes, vent \T\ supraven Prolonged WA interval Probable left atrial enlargement Left axis deviation RSR' in V1 or V2, probably normal variant Baseline wander in lead(s) V1 Electronically Signed On 04-06-2018 9:49:46 PST by David Franklin MD CM:EKGRPT:ELECTROCARDIOGRAM REPORT [id number] WESLEY HOSKINS DNP EPIPHANY DRAFT REPORT WESLEY HOSKINS DNP
--- NOTE | ~2018-04-05 | PR ---
[place], [place] PROGRESS NOTE NAME: [facility] [id number] UNIT #: [id number] ROOM: 421 DOCTOR: VIOLET STEELE MD,CONNOR BIRTHDATE: [birth year] DOS: 04/09/2018 PULMONARY PROGRESS NOTE SUBJECTIVE: The patient was comfortably resting, sitting on the chair this morning, eating his breakfast, does not show any symptoms of acute shortness of breath or chest pain. Mild cough was reported. There were no sputum expectoration. OBJECTIVE: VITAL SIGNS: Normal temperature, respiratory rate 18, heart rate 56, blood pressure 156/67. The pulse oxygen saturation on room air 96% saturation. HEENT: Examination shows head was atraumatic. Eyes nonicterus. NECK: Supple. CARDIOVASCULAR SYSTEM: S1, S2 is audible. LUNGS: The patient was noted without any wheeze or crackles at the present time. Breaths are noted decreased in the lower portion of the lungs bilaterally, greater on the right than the left side. ABDOMEN: Soft, nontender. Bowel sounds present. EXTREMITIES: No acute change. IMPRESSION: 1. Stable respiratory status was noted at this time with bilateral areas of lung mass with metastatic cancer of the pancreas. 2. Abnormal swallowing study with oropharyngeal dysphagia. PLAN OF MANAGEMENT: No changes in the plan of care at this time. From the pulmonary standpoint, the patient remained stable. The patient does not require any new acute changes. Follow up the recommendation, arrangement for transfer to [facility]. CONNOR LAZO MD CM:PNVIRAJ [id number] CONNOR STEELE MD 04/10/18 0043 interface
--- NOTE | ~2018-04-05 | PROC NOTE ---
[place], [place] PROCEDURE NOTE NAME: RAMON PICHARDO [facility] #: [id number] UNIT #: [id number] ROOM: 421 DOCTOR: CHRIS GARCIA BIRTHDATE: [birth year] DOS: Room Number: 421. HISTORY: The patient is an 83-year-old male, referred for a modified barium swallow study to rule out possible aspiration. The patient presented to ED on 04/05/2018 with complaints of left rib and arm pain. The patient admitted to hospital with primary diagnosis of pneumonia and rib fracture. The patient has additional past medical history significant for pancreatic cancer with metastasis to the lung, dementia and hypertension. The patient is not currently undergoing any treatment for pancreatic cancer. CT of chest completed 04/05/2018 revealed "extensive opacity in both lower lobes as well as right middle lobe and lingual compatible with multifocal bilateral pneumonias, correlate clinically for possibility of aspiration." Blood work completed this date indicates increased white blood cell count. The patient is currently on a regular diet. The patient interviewed prior to MBS. The patient reported no difficulty with solids or liquids. The patient was asked about tolerance of food items such as crackers, meat, and raw vegetables in addition to coughing with liquids. The patient stated he was unsure and will check with his . ORAL MECH: Revealed fasciculations of the tongue at rest and during lingual movements. Lingual and labial movements are reduced in speed and he demonstrated limited lingual range of motion. The patient additionally produced weak volitional cough. METHODS AND MATERIALS USED FOR EXAM: The patient was positioned in the lateral plane and the exam was viewed under fluoroscopy and was videotaped. A variety of substances were used during this examination including barium coated applesauce, barium coated sandwich, barium coated cookie and nectar-like and honey-like liquid barium. ORAL PHASE: The patient demonstrated increased oral prep time and extended mastication for trials of sandwich and cookie. AP time was moderately reduced for previously mentioned solids in addition to honey-thick liquids and mildly reduced for nectar thick liquids. The patient demonstrated functional lingual and palatal contact across consistencies. Oral phase of pharyngeal swallow was functional for trials of applesauce. PHARYNGEAL PHASE: The pharyngeal phase of the swallow was represented by severe dysfunction. Silent aspiration was observed on first trial with nectar like liquid via cup. The patient cued to volitionally cough, which was weak and nonproductive. The patient was not able to clear laryngeal vestibule or airway. The patient was cued to take a small single sip. A second trial resulting in same large sip with silent aspiration. The patient given controlled sip of nectar like liquid via teaspoon with aspiration and reflexive cough. The patient was not able to produce productive cough across all trials. No penetration or aspiration observed with trials of honey like liquid barium, applesauce, sandwich or cookie. The patient demonstrated moderate vallecular and pyriform sinus residue and mild posterior pharyngeal wall residue. The patient able to reduce pharyngeal residues with additional swallows and sips. [place], [place] PROCEDURE NOTE NAME: RAMON PICHARDO UNIT #: [id number] ROOM: [facility] DOCTOR: CHRIS GARCIA BIRTHDATE: [birth year] Pharyngeal swallow was delayed to the level of the vallecula across all trials. ESOPHAGEAL PHASE: This phase was not formally assessed during the evaluation. IMPRESSION: The patient demonstrates severe oropharyngeal dysphagia characterized by silent aspiration of nectar liquids, moderate pharyngeal residues, reduced oral skills and delayed initiation of pharyngeal swallow. RECOMMENDATIONS: The patient is recommended mechanical soft diet with honey like liquids. Oral medications to be taken with honey like liquids or with pudding or applesauce. The patient recommended to sit upright during all p.o. intake, take small bites and sips and alternate between solids and liquids to help reduce pharyngeal residues. Free water protocol recommended to help ensure adequate hydration. The patient to be followed by Speech Therapy to assess safety and tolerance of recommended diet throughout a meal and adherence to safe swallowing strategies in addition to receive swallowing treatment. Thank you for your consultation. Chris Garcia CM:PROCNOTE:PROCEDURE NOTE [id number] CHRIS GARCIA
--- NOTE | ~2018-04-05 | EKG ---
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
--- NOTE | ~2018-04-05 | PR ---
[place], [place] PROGRESS NOTE [id number] UNIT #: [id number] ROOM: 421 DOCTOR: VIOLET STEELE MD,CONNOR BIRTHDATE: [birth year] DOS: 04/10/2018 PULMONARY PROGRESS NOTE SUBJECTIVE: The patient noted comfortable at this time, resting and sitting on the chair this morning. Denies nausea or any symptoms of respiratory distress. Denies any coughing, chest pain or sputum expectoration. OBJECTIVE: VITAL SIGNS: Normal temperature, respiratory rate 24, heart rate of 59, blood pressure 140/60 with pulse ox saturation on room air 96% saturation. HEENT: No acute change. NECK: Supple. CARDIOVASCULAR: S1, S2 audible. LUNGS: Noted without any wheeze or crackle at the present time. ABDOMEN: Soft, nontender. Bowel sounds present. EXTREMITIES: The patient has no acute edema. IMPRESSION: The patient with bilateral lung mass-like lesion noted with known history of pancreatic cancer with the metastasis. Unable to assess any progression for this patient based on his previous assessment, which was done at [facility]. PLAN OF TREATMENT: The patient noted stable pulmonary standpoint, he will not be transferred to [facility] for the patient has been noted currently stable per the opinion of [facility]. He could be discharged home to have an outpatient followup to be established to have a CT scan of the chest taken by the spouse of this patient to her medical oncologist to determine the progression of the current malignant process. CONNOR LAZO MD CM:PNTRANS [id number] CONNOR STEELE MD 04/11/18 0357 interface
--- NOTE | ~2018-04-05 | EKG ---
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 : 1935 Requested By: RUDY CATHERINE Order Number: [id number] Reading MD: Isabella Dorman MD Measurements Intervals [place] Rate: 82 P: -67 DC: 168 QRS: -44 QRSD: 88 T: 19 QT: 400 QTc: 468 Interpretive Statements Sinus rhythm Left axis deviation Probable anteroseptal infarct, old Borderline ST depression, anterolateral leads Baseline wander in lead(s) V6 Compared to ECG 04/05/2018 21:29:40 Myocardial infarct finding now present ST (T wave) deviation now present Sinus rhythm no longer present Atrial premature complex(es) no longer present First degree AV block no longer present Electronically Signed On 04-09-2018 15:33:53 PST by Isabella Dorman MD CM:EKGRPT:ELECTROCARDIOGRAM REPORT [id number] RUDY MCMILLAN DRAFT REPORT RUDY CATHERINE DO
--- NOTE | ~2018-04-05 | PR ---
[place], [place] PROGRESS NOTE [id number] UNIT #: [id number] ROOM: 421 DOCTOR: VIOLET STEELE MD,CONNOR BIRTHDATE: [birth year] DOS: 04/08/2018 SUBJECTIVE: The patient was noted comfortable at this time, sitting on the chair this morning, has been noted with weakness of the right upper extremity as per . CT scan of the head was done, which were noted negative for any evidence of acute stroke. The symptom recovery has been noted currently completely. The patient has not been reported any symptoms of chest pain. Mild to moderate cough without any sputum expectoration. Symptoms shortness breath at rest. Vitals were present in room with the patient. OBJECTIVE: VITAL SIGNS: Normal temperature, respiratory rate 20, heart rate 63, blood pressure 152/56. Pulse oxygen saturation on room air 96% saturation recorded. HEENT: Recorded examination shows head was atraumatic. Eyes nonicterus. NECK: Supple. CARDIOVASCULAR: S1, S2 audible. LUNGS: Decreased breath sounds on the previous noted ABDOMEN: Soft, nontender. Bowel sounds present. EXTREMITIES: No acute change. IMPRESSION: 1. The patient with bilateral mass lesion with nodules with known history of pancreatic cancer. Question of a superimposed pneumonia. 2. Small bilateral pleural fluid related to current ongoing pulmonary pathology. PLAN OF TREATMENT: The patient has been awaiting for transfer to [facility] for this patient hospital. The cauterization patient pending from the insurance before transfer. Continue in the meantime, other plan of management as of yesterday. Supportive care. CONNOR LAZO MD CM:PNTRANS [id number] CONNOR STEELE MD 04/08/181933 interface
[~2018-04-05 12:58] MED LIST changes: +ACETAMINOPHEN500 M5 PO; +ALPHAGAN-P 0.2%5 ML OU; +AMLODIPINE BESY10 MG PO; +BISOPROLOL FM5 MG PO; +CEFTRIAXON2 GM/50 M1 IV; +CEFTRIAXON2 GM/50 ML IV; +CREON DR 12,001 EACH PO; +FLORAJEN3 CAPS460 MG PO; +FLORICAL CAPSU1 EACH PO; +MIRTAZAPINE7.5 MG PO; +OSTEO BI-FLEX1 EAC2 PO; +PREDNISONE5 MG PO; +VITAMIN B-1100 M1 PO; +VITAMIN D-32000 UNIT PO; -VITAMIN D5000 I3 PO; +ZYPREXA2.5 MG PO; +ZYPREXA5 M1 PO
[2018-04-05 13:49] LABS: HEMATOCRIT 34.4 % (42.0-52.0); HEMOGLOBIN 11.1 g/dl (14.0-18.0); MEAN CELL VOLUME 107.8 fl (80.0-94.0); MEAN CORPUSCULAR HGB 34.8 pg (27.0-31.0); MEAN CORPUSCULAR HGB CONC 32.3 g/dl (33.0-37.0); MEAN PLATELET VOLUME 10.9 fl (9.6-12.3); PLATELET COUNT AUTOMATED 182 10*3/uL (130-400); RED BLOOD COUNT 3.19 10*6/uL (4.50-5.90); RED CELL DISTRI WIDTH 14.6 % (0-14.5); WHITE BLOOD COUNT 13.7 10*3/uL (4.8-10.8)
[2018-04-05 14:00] LABS: ACT PARTIAL THROMBO TIME 21.5 SECONDS (20.8-31.5)
[2018-04-05 14:09] LABS: PLATELET SUFFICIENCY NORMAL (NORMAL); TOTAL CELLS COUNTED 100 #CELLS
[2018-04-05 15:01] LABS: ALBUMIN 3.1 gm/dl (3.1-4.5); ALKALINE PHOSPHATASE 124 U/L (45-117); BUN 32 mg/dl (7-24); CHLORIDE 110 mmol/L (98-107); CREATININE 1.58 mg/dL (0.70-1.30); LIPASE 24 U/L (73-393); POTASSIUM 4.9 mmol/L (3.5-5.1); SGOT/AST 10 IU/L (3-35); SGPT/ALT 15 U/L (12-78); SODIUM 139 mmol/L (136-145); TOTAL PROTEIN 6.5 gm/dL (6.4-8.2)
[2018-04-05 15:02] LABS: TROPONIN I < 0.015 ng/ml (<0.045)
[2018-04-05] MEDS ORDERED: MUCINEX DM 30/61 TAB PO (19:05)
[2018-04-06] VITALS: BP 156/57
[2018-04-06 06:23] LABS: HEMATOCRIT 34.9 % (42.0-52.0); HEMOGLOBIN 11.5 g/dl (14.0-18.0); MEAN CELL VOLUME 106.7 fl (80.0-94.0); MEAN CORPUSCULAR HGB 35.2 pg (27.0-31.0); MEAN PLATELET VOLUME 10.9 fl (9.6-12.3); PLATELET COUNT AUTOMATED 169 10*3/uL (130-400); RED BLOOD COUNT 3.27 10*6/uL (4.50-5.90); RED CELL DISTRI WIDTH 14.6 % (0-14.5); WHITE BLOOD COUNT 11.9 10*3/uL (4.8-10.8)
[2018-04-06 07:05] LABS: ALBUMIN 2.6 gm/dl (3.1-4.5); CREATININE 1.49 mg/dL (0.70-1.30); PHOSPHOROUS 3.5 mg/dL (2.5-4.9); POTASSIUM 5.2 mmol/L (3.5-5.1); TOTAL PROTEIN 5.9 gm/dL (6.4-8.2)
[2018-04-06 07:12] LABS: THYROID STIM HORMONE (HS) 0.8 uIU/ml (0.358-4.75)
[2018-04-06 07:44] LABS: TOTAL CELLS COUNTED 100 #CELLS
[2018-04-06 07:45] LABS: SCHISTOCYTES FEW
[2018-04-06 07:46] LABS: PLATELET SUFFICIENCY NORMAL (NORMAL)
[2018-04-06 08:00] VITALS: BP 150/62
[2018-04-06 08:45] LABS: VITAMIN D, 25-HYDROXY 30.8 ng/mL (30-100)
[2018-04-06 12:00] VITALS: BP 139/48
[2018-04-06 16:00] VITALS: BP 142/63
[2018-04-06 20:00] VITALS: BP 131/49
[2018-04-07] VITALS: BP 122/40
[2018-04-07 05:49] LABS: HEMATOCRIT 32.3 % (42.0-52.0); HEMOGLOBIN 10.2 g/dl (14.0-18.0); MEAN CELL VOLUME 109.1 fl (80.0-94.0); MEAN CORPUSCULAR HGB 34.5 pg (27.0-31.0); MEAN CORPUSCULAR HGB CONC 31.6 g/dl (33.0-37.0); NUCLEATED RED BLOOD CELL 0.1 % (0.0-0.0); PLATELET COUNT AUTOMATED 160 10*3/uL (130-400); RED BLOOD COUNT 2.96 10*6/uL (4.50-5.90); RED CELL DISTRI WIDTH 14.6 % (0-14.5); WHITE BLOOD COUNT 14.1 10*3/uL (4.8-10.8)
[2018-04-07 06:08] LABS: CREATININE 1.77 mg/dL (0.70-1.30); PHOSPHOROUS 3.9 mg/dL (2.5-4.9); POTASSIUM 5.5 mmol/L (3.5-5.1)
[2018-04-07 06:54] LABS: TOTAL CELLS COUNTED 100 #CELLS
[2018-04-07 06:55] LABS: BURR CELLS FEW; PLATELET SUFFICIENCY NORMAL (NORMAL); SCHISTOCYTES FEW
[2018-04-07 08:00] VITALS: BP 152/57
[2018-04-07 12:00] VITALS: BP 148/53
[2018-04-07 16:00] VITALS: BP 129/47
[2018-04-07 18:59] LABS: CREATININE 1.88 mg/dL (0.70-1.30)
[2018-04-07 20:00] VITALS: BP 133/70
[2018-04-08] VITALS: BP 126/65
[2018-04-08 06:17] LABS: HEMOGLOBIN 9.4 g/dl (14.0-18.0); MEAN CELL VOLUME 110.7 fl (80.0-94.0); MEAN CORPUSCULAR HGB 34.7 pg (27.0-31.0); MEAN CORPUSCULAR HGB CONC 31.3 g/dl (33.0-37.0); MEAN PLATELET VOLUME 11.3 fl (9.6-12.3); NUCLEATED RED BLOOD CELL 0.4 % (0.0-0.0); PLATELET COUNT AUTOMATED 148 10*3/uL (130-400); RED BLOOD COUNT 2.71 10*6/uL (4.50-5.90); RED CELL DISTRI WIDTH 14.6 % (0-14.5); WHITE BLOOD COUNT 11.3 10*3/uL (4.8-10.8)
[2018-04-08 06:18] LABS: POTASSIUM 4.9 mmol/L (3.5-5.1)
[2018-04-08 06:23] LABS: CREATININE 1.84 mg/dL (0.70-1.30); PHOSPHOROUS 4.4 mg/dL (2.5-4.9)
[2018-04-08 07:05] LABS: BURR CELLS FEW; PLATELET SUFFICIENCY NORMAL (NORMAL); SCHISTOCYTES FEW; TOTAL CELLS COUNTED 100 #CELLS
[2018-04-08 08:00] VITALS: BP 152/56
[2018-04-08 12:00] VITALS: BP 152/60
[2018-04-08 16:00] VITALS: BP 137/52
[2018-04-08 20:00] VITALS: BP 126/60
[2018-04-09] VITALS: BP 144/74
[2018-04-09 06:44] LABS: HEMATOCRIT 30.8 % (42.0-52.0); HEMOGLOBIN 9.7 g/dl (14.0-18.0); MEAN CELL VOLUME 111.2 fl (80.0-94.0); MEAN CORPUSCULAR HGB CONC 31.5 g/dl (33.0-37.0); MEAN PLATELET VOLUME 11.4 fl (9.6-12.3); NUCLEATED RED BLOOD CELL 0.2 % (0.0-0.0); PLATELET COUNT AUTOMATED 154 10*3/uL (130-400); RED BLOOD COUNT 2.77 10*6/uL (4.50-5.90); RED CELL DISTRI WIDTH 14.3 % (0-14.5); WHITE BLOOD COUNT 9.9 10*3/uL (4.8-10.8)
[2018-04-09 07:08] LABS: CREATININE 1.69 mg/dL (0.70-1.30); POTASSIUM 4.4 mmol/L (3.5-5.1)
[2018-04-09 07:23] LABS: TOTAL CELLS COUNTED 100 #CELLS
[2018-04-09 07:24] LABS: OVALOCYTES FEW; PLATELET SUFFICIENCY NORMAL (NORMAL)
[2018-04-09 08:00] VITALS: BP 156/67
[2018-04-09 12:00] VITALS: BP 154/63
[2018-04-09 16:00] VITALS: BP 143/59
[2018-04-09 20:51] VITALS: BP 140/59
[2018-04-10] VITALS: BP 141/85
[2018-04-10 08:00] VITALS: BP 114/74; BP 140/60
[2018-04-10] MEDS ORDERED: CLINDAMYCIN HC300 MG PO (10:10)
[2018-05-14] MEDS ORDERED: PREDNISONE10 MG PO (08:33)
[2018-05-14] MEDS ORDERED: PREDNISONE10 M1 PO (08:36)
[2018-05-14] MEDS ORDERED: TESSALON PERLE100 MG PO (08:37)
[2018-05-14] MEDS ORDERED: CREON 36000 UNIT PO (08:40)
[2018-05-14] MEDS ORDERED: [UNRECOGNIZED DRUG - OTHER] PO (11:25)
[2018-05-14] MEDS ORDERED: ANTIFUNGAL T (11:32)
[2018-05-14] MEDS ORDERED: [UNRECOGNIZED DRUG - OTHER] T (11:34)
[2018-05-14] MEDS ORDERED: OSTEO BI-FLEX1 EAC2 PO (11:36)
[2018-05-14] MEDS ORDERED: FLORAJEN460 MG PO (11:39)
[2018-05-14] MEDS ORDERED: CLINDAGEL 40 ML40 ML T (11:41)
[2018-05-15] MEDS ORDERED: LEVOFLOXAC750 MG/150 IV (13:07)
[2018-05-15] MEDS ORDERED: PROPOFOL10 MG/1 ML IV (13:13)
[2018-05-15] MEDS ORDERED: HEPARIN SO5000 UNIT/ SC (13:13)
[2018-05-15] MEDS ORDERED: Ipratropium Brom3 ML NEB (13:13)
[2018-05-15] MEDS ORDERED: PROTONIX40 M1 IV (13:13)
[2018-05-15] MEDS ORDERED: VANCO 1 GR1 GM/250 M IV (13:13)
[2018-05-15] MEDS ORDERED: ZOSYN 3.373.375 GM/5 IV (13:13)
== END 2018-04-10 11:13 | disposition home health service (06) | DRG 177 ==
LOC: ED 12:58 → 4E 18:20 → EDHOLD 18:20 → 4E 18:36
PROVIDERS: Internal Medicine; Nurse Practitioner Family; Student in an Organized Health Care Education/Training Program; ADMIT Internal Medicine
PROC: BD1BYZZ Fluoroscopy of Mouth/Oropharynx using Other Contrast (ICD-10-PCS; principal; 2018-04-06)
DX: J69.0 Pneumonitis due to inhalation of food and vomit (principal); N17.0 Acute kidney failure with tubular necrosis; I50.32 Chronic diastolic (congestive) heart failure; E44.0 Moderate protein-calorie malnutrition; D68.59 Other primary thrombophilia; M84.48XA Pathological fracture, other site, initial encounter for fracture; I13.0 Hypertensive heart and chronic kidney disease with heart failure and stage 1 through stage 4 chronic kidney disease, or unspecified chronic kidney disease; C79.51 Secondary malignant neoplasm of bone; E78.5 Hyperlipidemia, unspecified; F41.1 Generalized anxiety disorder; K21.9 Gastro-esophageal reflux disease without esophagitis; H40.9 Unspecified glaucoma; M21.331 Wrist drop, right wrist; R13.12 Dysphagia, oropharyngeal phase; E53.8 Deficiency of other specified B group vitamins; D64.9 Anemia, unspecified; E83.41 Hypermagnesemia; R73.9 Hyperglycemia, unspecified; E87.8 Other disorders of electrolyte and fluid balance, not elsewhere classified; F17.210 Nicotine dependence, cigarettes, uncomplicated; E55.9 Vitamin D deficiency, unspecified; R00.1 Bradycardia, unspecified; F32.9 Major depressive disorder, single episode, unspecified; F03.90 Unspecified dementia, unspecified severity, without behavioral disturbance, psychotic disturbance, mood disturbance, and anxiety; Z96.1 Presence of intraocular lens; N18.3 Chronic kidney disease, stage 3 (moderate); Z85.07 Personal history of malignant neoplasm of pancreas; Z85.118 Personal history of other malignant neoplasm of bronchus and lung; Z92.21 Personal history of antineoplastic chemotherapy; Z91.040 Latex allergy status; Z88.8 Allergy status to other drugs, medicaments and biological substances; Z91.048 Other nonmedicinal substance allergy status; Z98.41 Cataract extraction status, right eye; Z98.42 Cataract extraction status, left eye; Z90.49 Acquired absence of other specified parts of digestive tract; Z90.79 Acquired absence of other genital organ(s); Z82.3 Family history of stroke; Z79.82 Long term (current) use of aspirin; Z68.26 Body mass index [BMI] 26.0-26.9, adult